=== PATIENT | male | born 1970 | race Caucasian/White ===

== ENCOUNTER 2022-07-07 09:32 | Emergency (ER) | payer OTHER ==
[2022-07-07 09:52] VITALS: BP 154/100; PULSE 86; RESP 18; TEMP 98.7; BMI 37.3
[2022-07-07] MEDS ORDERED: IBUPROFEN 400 MG TABLET (FP) PO ONE ×2 (10:59→11:06)
== END 2022-07-07 11:34 | disposition home or self-care (01) ==
LOC: JERFT 09:32 → JER 09:32 → JERFT 11:34
DX: S99.911A Unspecified injury of right ankle, initial encounter (principal); W18.31XA Fall on same level due to stepping on an object, initial encounter
CPT/HCPCS: 73610-TC-RT-FY; 73630-TC-RT-FY; 99283-25